=== PATIENT | female | born 1990 | race Caucasian/White ===

== ENCOUNTER 2020-01-15 10:19 | Day surgery (SDC) | payer MEDICAID ==
[2020-01-14 11:58] LABS: BASOPHILS % (AUTO) 0.6 % (0.0-2.0); EOSINOPHILS % (AUTO) 2.1 % (1.0-6.0); HEMATOCRIT 36.9 % (36-46); HEMOGLOBIN 12.6 g/dL (12.0-16.0); LYMPHOCYTES # (AUTO) 2.5 K/uL (1.0-4.8); LYMPHOCYTES % (AUTO) 29.3 % (22.0-44.0); MEAN CORPUSCULAR HEMOGLOBIN 28.5 pg (26.0-34.0); MEAN CORPUSCULAR HGB CONC 34.1 G/dL (31.0-37.0); MEAN CORPUSCULAR VOLUME 84 fL (80-100); MONOCYTES # (AUTO) 0.5 K/uL (0.1-1.0); MONOCYTES % (AUTO) 5.4 % (2.0-9.0); NEUTROPHILS # (AUTO) 5.4 K/uL (1.8-7.7); NEUTROPHILS % (AUTO) 62.6 % (40.0-70.0); PLATELET COUNT (AUTO) 214 K/uL (150-450); RED BLOOD CELL COUNT(AUTO) 4.42 MIL/uL (4.00-5.20); RED CELL DISTRIBUTION WIDTH 13.7 % (11.5-14.5)
[2020-01-14 12:11] LABS: INR 0.9 (0.9-1.1); PROTHROMBIN TIME 9.7 SEC (9.4-11.6)
[2020-01-14 13:04] LABS: ANION GAP 10 mmol/L (8-16); CALCIUM, TOTAL 8.6 mg/dL (8.8-10.5); CARBON DIOXIDE 26 mmol/L (22-29); CHLORIDE 104 mmol/L (98-107); CREATININE 0.49 mg/dL (0.60-1.30); GLOMERULAR FILTR. RATE CALC > 60 mL/min (>60); GLUCOSE,RANDOM 91 mg/dL (70-110); HCG,QUANTITATIVE 42447 mIU/mL (0-6); SODIUM SERUM 140 mmol/L (136-145); UREA NITROGEN, BLOOD 8 mg/dL (7-18)
[~2020-01-15] VITALS: Ht 160 cm; Wt 110.5 kg
[~2020-01-15 10:19] MED LIST: CEPH125S23 PO; METR500 PO; RINGERS SOLUTION,LACTATED 1,000 ML IV ONE
[2020-01-15] MEDS ORDERED: LIDOCAINE/PF 2% 5 ML VIAL IM ONE (10:20)
[2020-01-15] MEDS ORDERED: MIDAZOLAM HCL 2 MG/2 ML VIAL IVP ONE (10:20)
[2020-01-15] MEDS ORDERED: PROPOFOL 1% 20 ML VIAL IVP ONE (10:20)
[2020-01-15] MEDS ORDERED: FentaNYL CITRATE-PF 100 MCG/2 ML VIAL IVP ONE (10:20)
[2020-01-15] MEDS ORDERED: DOXYCYCLINE HYCLATE 100 MG in DEXTROSE 5%-WATER 100 ML IV ONE (13:00)
== END 2020-01-15 14:40 | disposition home or self-care (01) ==
LOC: SURGERY 10:19
PROVIDERS: ATTEND Obstetrics & Gynecology
DX: O02.1 Missed abortion (principal); E66.3 Overweight; Z68.41 Body mass index [BMI] 40.0-44.9, adult; Z11.59 Encounter for screening for other viral diseases
CPT/HCPCS: 36415; 59820; 80048; 84702; 85025; 85610; 85730; 86850; 86900; 86901; 87635; 88230; 88262; 88305; J2250; J2704; J3010; J3490 ×2; J7060; J7120